=== PATIENT | male | born 1985 | race Caucasian/White ===

== ENCOUNTER → 2020-05-14 | Outpatient (CLI) | payer OTHER | LOC: KOH-I 08:14 | DX: R10.13 Epigastric pain (principal); R10.32 Left lower quadrant pain; K76.0 Fatty (change of) liver, not elsewhere classified | CPT/HCPCS: 76700 ==

== ENCOUNTER → 2021-10-07 | Outpatient (CLI) | payer OTHER | LOC: KOH-I 15:00 | DX: R13.10 Dysphagia, unspecified (principal); E04.2 Nontoxic multinodular goiter | CPT/HCPCS: 76536 ==